=== PATIENT | male | born 1950 | race Caucasian/White ===

== ENCOUNTER → 2019-03-27 | Outpatient (CLI) | payer MEDICARE, OTHER | END | disposition home or self-care (01) | LOC: PCVCCLINIC 14:00 | PROVIDERS: ATTEND Internal Medicine | DX: I25.10 Atherosclerotic heart disease of native coronary artery without angina pectoris (principal); I10 Essential (primary) hypertension; E78.00 Pure hypercholesterolemia, unspecified; E11.9 Type 2 diabetes mellitus without complications; I65.23 Occlusion and stenosis of bilateral carotid arteries; R19.8 Other specified symptoms and signs involving the digestive system and abdomen; R19.07 Generalized intra-abdominal and pelvic swelling, mass and lump; F17.200 Nicotine dependence, unspecified, uncomplicated; Z82.49 Family history of ischemic heart disease and other diseases of the circulatory system; Z79.82 Long term (current) use of aspirin; Z79.899 Other long term (current) drug therapy; Z88.8 Allergy status to other drugs, medicaments and biological substances | CPT/HCPCS: 93005; G0463 ==

== ENCOUNTER → 2019-04-10 | Outpatient (CLI) | payer MEDICARE, OTHER ==
--- NOTE | 2019-04-10 10:21 | PCVCIMAG ---
APPROVED REPORT Laterality: Bilateral Indications Stenosis Doppler Spectral Velocity Analysis PSV / EDVPSV / EDV ECA (R) 85 / 18 cm/sECA (L) 87 / 17 cm/s dICA (R) 71 / 25 cm/sdICA (L) 58 / 24 cm/s Billie (R) 64 / 24 cm/smICA (L) 50 / 22 cm/s pICA (R) 39 / 13 cm/spICA (L) 55 / 20 cm/s Bulb (R) 42 / 16 cm/sBulb (L) 66 / 22 cm/s dCCA (R) 57 / 17 cm/sdCCA (L) 67 / 23 cm/s mCCA (R) 85 / 18 cm/smCCA (L) 76 / 23 cm/s Vert (R) 36 / 10 cm/sVert (L) 60 / 24 cm/s ICA/CCA 1.25ICA/CCA 0.87 Findings The right carotid bulb has minimal plaque. The right proximal internal carotid artery shows no significant stenosis. The right common carotid artery shows no significant stenosis. The right external carotid artery shows no significant stenosis. The left carotid bulb has mild plaque. The left proximal internal carotid artery shows no significant stenosis. The left common carotid artery shows no significant stenosis. The left external carotid artery shows no significant stenosis. Conclusion 1. Mild bilateral plaquing without significant stenosis 2. Antegrade vertebral flow
--- NOTE | 2019-04-10 14:42 | PCVCIMAG ---
EXAM: AORTOILIAC DUPLEX INDICATION: Peripheral arterial disease FINDINGS: AORTA: Suprarenal aorta measures maximum diameter of 2.8 cm. There is not a fusiform infrarenal aortic aneurysm. The infrarenal aorta measures maximum diameter of 2.3 cm. No aortic stenosis. RIGHT COMMON ILIAC ARTERY: Maximum diameter is 1.1 cm. No significant stenosis. RIGHT EXTERNAL ILIAC ARTERY: No significant stenosis. LEFT COMMON ILIAC ARTERY: Maximum diameter is 1.3 cm. No significant stenosis. LEFT EXTERNAL ILIAC ARTERY: No significant stenosis. IMPRESSION: No abdominal aortic aneurysm. No aortoiliac stenosis seen. LOC:OFFICE
== END | disposition home or self-care (01) ==
LOC: PCVCIMAG 09:32
PROVIDERS: ATTEND Internal Medicine
DX: I65.23 Occlusion and stenosis of bilateral carotid arteries (principal); I25.10 Atherosclerotic heart disease of native coronary artery without angina pectoris; E11.51 Type 2 diabetes mellitus with diabetic peripheral angiopathy without gangrene; E78.00 Pure hypercholesterolemia, unspecified; R19.8 Other specified symptoms and signs involving the digestive system and abdomen; F17.200 Nicotine dependence, unspecified, uncomplicated
CPT/HCPCS: 93880; 93978

== ENCOUNTER → 2019-04-27 | Outpatient (CLI) | payer MEDICARE, OTHER ==
[~2019-04-27] MED LIST: REGADENOSON 0.4 MG/5 ML DISP.SYRIN. IV ONE
--- NOTE | 2019-04-27 09:43 | PCVCIMAG ---
APPROVED REPORT Study performed: 04/27/2019 08:31:39 EXAM: Comprehensive 2D, Doppler, and color-flow Echocardiogram Patient Location: Echo lab Room #: 2Status: routine BSA: 2.09 HR: 68 bpmBP: 120/70 mmHg Rhythm: NSR Other Information Study Quality: Good Risk Factors: Cardiac Risk Factors: HTN, Hyperlipidemia, DM, Smoking-former Indications Diabetes CAD Hypertension/HDD 2D Dimensions IVSd: 8.45 (7-11mm)LVOT Diam: 25.33 (18-24mm) LVDd: 51.39 mm PWd: 8.36 (7-11mm)Ascending Ao: 37.71 (22-36mm) LVDs: 24.94 (25-40mm) Left Atrium: 29.24 (27-40mm) Aortic Root: 33.32 mm LV Single Plane 4CH: 56.65 % LV Single Plane 2CH: 55.74 % Biplane EF: 56.9 % Volumes Left Atrial Volume (Systole) Single Plane 4CH: 53.54 mLSingle Plane 2CH: 45.12 mL Biplane LA Volume: 52.00 mLLA ESV Index: 25.00 mL/m2 Aortic Valve AoV Peak Abhijeet.: 1.30 m/s AO Peak Gr.: 7.09 mmHgLVOT Max P.50 mmHg LVOT Max V: 1.00 m/s JESSICA Vmax: 3.90 cm2 Mitral Valve E/A Ratio: 0.7 MV Decel. Time: 313.56 ms MV E Max Abhijeet.: 0.69 m/s MV A Abhijeet.: 0.95 m/s IVRT: 117.65 ms TDI E/Lateral E': 8.63E/Medial E': 11.50 Medial E' Abhijeet.: 0.06 m/s Lateral E' Abhijeet.: 0.08 m/s Pulmonary Valve PV Peak Abhijeet.: 0.96 m/sPV Peak Gr.: 3.66 mmHg Pulmonary Vein P Vein S: 0.55 m/sP Vein A: 0.30 m/s P Vein D: 0.39 m/sP Vein A Dur.: 134.9 msec P Vein S/D Ratio: 1.41 Tricuspid Valve TR Peak Abhijeet.: 1.76 m/s TR Peak Gr.: 12.37 mmHg TV Vmax: 0.91 m/sPA Pressure: 19.00 mmHg Left Ventricle The left ventricle is normal size. There is normal LV segmental wall motion. There is normal left ventricular wall thickness. Left ventricular systolic function is normal. The left ventricular ejection fraction is within the normal range. LVEF is 55-60%. Mild diastolic dysfunction is present (impaired relaxation pattern). Right Ventricle The right ventricle is normal size. The right ventricular systolic function is normal. Atria The left atrium size is normal. The right atrium size is normal. Aortic Valve Aortic valve is trileaflet No aortic regurgitation is present. There is no aortic valvular stenosis. Mitral Valve The mitral valve is normal in structure. There is no mitral valve regurgitation noted. No evidence of mitral valve stenosis. Tricuspid Valve The tricuspid valve is normal in structure. Trace tricuspid regurgitation with a PA pressure of 20 mmHg. No pulmonary hypertension. Pulmonic Valve The pulmonary valve is normal in structure. Trace pulmonic regurgitation. Great Vessels The aortic root is normal in size. The ascending aorta is upper normal in size. Aortic arch is normal in caliber. IVC is normal in size and collapses >50% with inspiration. Pericardium There is no pericardial effusion. There is no pleural effusion. <Conclusion> Left ventricular systolic function is normal. There is normal LV segmental wall motion. LVEF is 55-60%. Mild diastolic dysfunction Aortic valve is trileaflet. No aortic regurgitation or stenosis The mitral valve is normal in structure. No mitral valve regurgitation. Trace tricuspid regurgitation with a pulmonary artery pressure of 20 mmHg. There is no pericardial effusion.
--- NOTE | 2019-04-27 15:15 | PCVCIMAG ---
APPROVED REPORT Imaging Protocol: Rest Tc-99m/Stress Tc-99m 1 day Study performed: 04/27/2019 09:00:58 Indication: Dyspnea Patient Location: Out-Patient Stress Nurse: Sarahy Che RN, Justyna Mann RN AL Tech:Jenn Garzon [facility] Ht: 5 ft 9 in Wt: 205 lbs BSA: 2.09 m2 HR: 68 bpm BP: 122/75 mmHg BMI: 30.2 Rhythm: Sinus Rhythm Medical History Medical History: CVD, CAD, HTN, Hyperlipidemia, Current Smoker, Diabetes Medications: ASA, Metformin, Metoprolol, Crestor Allergies: Tylenol Cardiac Risk Factors: Age, FHX of CAD Pretest Chest Pain Characteristics: No chest pain Exercise History: Sedentary Physical Disabilities: Sciatica Meds Held (24 hrs): Metoprolol Stress Test Details Stress Test: Pharmacologic stress testing performed using 0.4 mg of regadenoson per 5 mL given IV over 10 seconds. Reason for pharmacologic stress test: Sciatic nerve issues. HRMax Heart Rate (APMHR): 154 bpm Resting HR: 68 bpmTarget HR (85% APMHR): 130 bpm Max HR Achieved: 97 bpm % of APMHR: 62 Recovery HR: 93 bpm BP Resting BP: 122/75 mmHg Max BP: 116/63 mmHg Recovery BP: 117/66 mmHg ECG Resting ECG: Sinus Rhythm Stress ECG: Sinus Rhythm ST Change: None Maximum ST Deviation: 0 mm Arrhythmia: None Recovery ECG: Sinus Rhythm Recovery ST Change: None Recovery ST Deviation: 0 mm Recovery Arrhythmia: None Clinical Reason for Termination: Completed protocol Stress Symptoms: Dyspnea, Lightheaded Symptoms resolved with caffeine. Stress ECG Conclusion ECG: Non-ischemic Clinical: Non-ischemic Study Quality Study: Good Study Data Post stress, the left ventricular ejection was 61%.. SSS: 0 SRS: 2 SDS: 0 TID = 0.85. Perfusion No evidence of stress induced ischemia or prior myocardial infarction. Wall Motion Normal left ventricular size and function with no regional wall motion abnormalities. Nuclear Conclusion No evidence of stress induced ischemia or prior myocardial infarction. Normal left ventricular size and function with no regional wall motion abnormalities. Post stress, the left ventricular ejection was 61%. No prior study available for comparison. Interpreted by: Ej Barahona MD Electronically Approved: 04/27/2019 14:40:34 <Conclusion> ECG: Non-ischemic Clinical: Non-ischemic
== END | disposition home or self-care (01) ==
LOC: PCVCIMAG 08:13
PROVIDERS: ATTEND Internal Medicine
DX: I25.10 Atherosclerotic heart disease of native coronary artery without angina pectoris (principal); E11.9 Type 2 diabetes mellitus without complications; I10 Essential (primary) hypertension; R06.00 Dyspnea, unspecified
CPT/HCPCS: 78452; 93017; 93306; A9500; J2785

== ENCOUNTER → 2019-09-21 | Outpatient (CLI) | payer MEDICARE, OTHER | END | disposition home or self-care (01) | LOC: PCVCCLINIC 13:00 | PROVIDERS: ATTEND Internal Medicine | DX: I25.10 Atherosclerotic heart disease of native coronary artery without angina pectoris (principal); I10 Essential (primary) hypertension; I65.23 Occlusion and stenosis of bilateral carotid arteries; E11.9 Type 2 diabetes mellitus without complications; E78.5 Hyperlipidemia, unspecified; F17.200 Nicotine dependence, unspecified, uncomplicated; Z88.8 Allergy status to other drugs, medicaments and biological substances; Z79.82 Long term (current) use of aspirin; Z79.84 Long term (current) use of oral hypoglycemic drugs; Z82.49 Family history of ischemic heart disease and other diseases of the circulatory system | CPT/HCPCS: 93005; G0463 ==